=== PATIENT | female | born 1935 | race Caucasian/White ===

== ENCOUNTER 2016-12-29 07:53 | Emergency (ER) | payer MEDICARE ==
[~2016-12-29] VITALS: Ht 160 cm; Wt 70.0 kg
[~2016-12-29 07:53] MED LIST: ASPI81TA45 PO; CALA180T PO; CALC600T34 PO; CARV6.252 PO; CENTTAB16 PO; FLOVENT110 MCG/A INH; FURO40TA PO; GINK40TA2 PO; HYDR200T3 OR; IRON27TA PO; LISI-363 PO; OMEG340C PO; OMEP20CA5 PO; POTA-243 PO; TRAM50TA PO; VENTAER INH; VITA-13 PO
[2016-12-29 07:57] VITALS: BP 236/110; PULSE 87; RESP 20; O2SAT 96
[2016-12-29 08:07] VITALS: BP 213/91; PULSE 77; RESP 24; TEMP 98.6; O2SAT 73
[2016-12-29] MEDS ORDERED: SODIUM CHLORIDE 0.9% FLUSH 10 ML FLUSH IVF PRN (08:30)
--- NOTE | 2016-12-29 08:33 | PD ---
HPI Chief Complaint: Cardiac Complaint Time Seen by Provider: 08:20 Travel History International Travel<30 days: No Contact w/Intl Traveler<30days: No Traveled to known affect area: No History of Present Illness HPI This is an 81-year-old female who has a history of COPD and mitral regurgitation followed by Dr. Berkowitz who presents to the emergency department with increasing shortness of breath, progressive over the past week, worse when she walks and improves when she sits down. Her daughter has noticed that her cough has sounded more wet. The patient is reporting discomfort involving her left shoulder, right neck and "all over her body". Her daughter says it's pretty common for the patient to report pain when she has a CHF exacerbation. The patient has been using her COPD medications but she's not improving. She has a history of severe mitral regurgitation but is not a candidate for surgery due to her pulmonary status. PFSH Past Medical History Arthritis: Yes Asthma: Yes Anxiety: No Depression: No Heart Rhythm Problems: Yes Cancer: No Cardiovascular Problems: Yes (VALVE ISSUE / CHF) High Cholesterol: Yes Chest Pain: Yes Congestive Heart Failure: Yes Diminished Hearing: No Endocrine: No Gastrointestinal Disorders: No Gout: Yes Genitourinary: Yes Headaches: No Hepatitis: No Hypertension: Yes Immune Disorder: Yes (LUPUS) Implanted Vascular Access Dvce: No Musculoskeletal: Yes Neurologic: No Psychiatric: No Reproductive: No Respiratory: Yes Immunizations Current: Yes Renal Failure: Yes (INSUFFICIENCY) Sickle Cell Disease: No Ulcer: Yes Menopausal: Yes Past Surgical History Eye Surgery: Yes (BOTH EYES CATARACT) Gynecologic Surgery: Yes (HYSTERECTOMY) Hysterectomy: Yes (PARTIAL 47 YEARS AGO) Insulin Pump: No Joint Replacement: Yes (BILATERAL KNEE) Neurologic Surgery: No Other Surgery: Yes Social History Alcohol Use: Yes (occ) Tobacco Use: No Substance Use: No Allergies-Medications (Allergen,Severity, Reaction): Coded Allergies: Lipitor (Unverified Allergy, Severe, MYALGIAS, 03/13/15) Reported Meds & Prescriptions Reported Meds & Active Scripts Active Reported Iron 100 Plus 100-250-0.025-1 mg (Iron-Vitamin C-Vitamin B12-Fol) 1 Tab Tab 1 E1000 (Vitamin E) 1,000 Unit Cap Calcium (Oyster Shell) 500 Mg Tab B12 (Cyanocobalamin) 1,000 Mcg Tab Vitamin D3 (Cholecalciferol) 1,000 Unit Cap 1,000 Units PO DAILY Escitalopram (Escitalopram Oxalate) 10 Mg Tab 10 Mg PO DAILY Aspir-81 (Aspirin) 81 Mg Tabdr Ventolin Hfa 18 GM Inh (Albuterol Sulfate) 90 Mcg/Act Aer 1 Puff INH Q4H PRN Flovent Hfa 10.6 GM Inh (Fluticasone Propionate) 44 Mcg/Act Inh 2 Puff INH BID Use daily at the same time. Furosemide 40 Mg Tab 40 Mg PO DAILY Furosemide Liq (Furosemide) 10 Mg/Ml Soln 20 Mg PO BID Carvedilol 6.25 Mg Tab 6.25 Mg PO BID Montelukast (Montelukast Sodium) 10 Mg Tab 10 Mg PO HS Lisinopril 40 Mg Tab 40 Mg PO DAILY Hydrocodone-Acetaminophen 5-325 mg Tab 1 Tab PO Q4H PRN Tramadol (Tramadol HCl) 50 Mg Tab 50 Mg PO Q4H PRN Lovastatin 40 Mg Tab 40 Mg PO DAILY Omeprazole 20 Mg Tab 20 Mg PO DAILY Hydroxychloroquine (Hydroxychloroquine Sulfate) 200 Mg Tab 200 Mg PO BID Takw with food Review of Systems Except as stated in HPI: all other systems reviewed are Neg Physical Exam Narrative GENERAL: Frail elderly female in no acute distress. SKIN: Focused skin assessment warm and dry. HEAD: Atraumatic. Normocephalic. EYES: Pupils equal and round. No injection or drainage. ENT: Moist mucous membranes NECK: Trachea midline. CARDIOVASCULAR: Regular rate and rhythm. No murmur appreciated. 1+ pitting edema in the bilateral lower extremities. RESPIRATORY: Rales in the bilateral lung bases. GASTROINTESTINAL: Abdomen soft, non-tender, nondistended. MUSCULOSKELETAL: No obvious deformities. NEUROLOGICAL: Awake and alert. No obvious cranial nerve deficits. Moving all extremities. PSYCHIATRIC: Appropriate mood and affect; insight and judgment normal. Data Data Last Documented VS Vital Signs Date Time Temp Pulse Resp B/P Pulse Ox O2 Delivery O2 Flow Rate FiO2 12/29/16 11:11 90 18 180/86 97 Room Air 12/29/16 08:07 98.6 Orders Electrocardiogram (12/29/16 ) Complete Blood Count With Diff (12/29/16 08:30) Comprehensive Metabolic Panel (12/29/16 08:30) B-Type Natriuretic Peptide (12/29/16 08:30) Troponin I (12/29/16 08:30) Iv Access Insert/Monitor (12/29/16 08:30) Ecg Monitoring (12/29/16 08:30) Oximetry (12/29/16 08:30) Oxygen Administration (12/29/16 08:30) Chest, Single Ap (12/29/16 08:30) Sodium Chloride 0.9% Flush (Ns Flush) (12/29/16 08:30) Us Arm Venous Doppler (12/29/16 09:09) Carvedilol (Coreg) (12/29/16 09:30) Lisinopril (Prinivil) (12/29/16 09:30) Cta Thor Abd Aorta W Iv C W3d (12/29/16 ) Acetamin-Hydrocod 325-5 Mg ([place] 5-325 (12/29/16 10:45) Troponin I (12/29/16 10:44) Iohexol 350 Inj (Omnipaque 350 Inj) (12/29/16 11:09) Urinalysis - C+S If Indicated (12/29/16 11:20) Labs Laboratory Tests Test 12/29/16 12/29/16 12/29/16 08:50 11:00 11:25 White Blood Count 5.9 TH/MM3 Red Blood Count 4.36 MIL/MM3 Hemoglobin 12.4 GM/DL Hematocrit 37.7 % Mean Corpuscular Volume 86.5 FL Mean Corpuscular Hemoglobin 28.4 PG Mean Corpuscular Hemoglobin 32.8 % Concent Red Cell Distribution Width 13.3 % Platelet Count 190 TH/MM3 Mean Platelet Volume 8.6 FL Neutrophils (%) (Auto) 64.0 % Lymphocytes (%) (Auto) 26.7 % Monocytes (%) (Auto) 8.1 % Eosinophils (%) (Auto) 0.6 % Basophils (%) (Auto) 0.6 % Neutrophils # (Auto) 3.7 TH/MM3 Lymphocytes # (Auto) 1.6 TH/MM3 Monocytes # (Auto) 0.5 TH/MM3 Eosinophils # (Auto) 0.0 TH/MM3 Basophils # (Auto) 0.0 TH/MM3 CBC Comment DIFF FINAL Differential Comment Sodium Level 141 MEQ/L Potassium Level 3.3 MEQ/L Chloride Level 102 MEQ/L Carbon Dioxide Level 30.5 MEQ/L Anion Gap 9 MEQ/L Blood Urea Nitrogen 22 MG/DL Creatinine 1.09 MG/DL Estimat Glomerular Filtration 48 ML/MIN Rate Random Glucose 96 MG/DL Calcium Level 9.1 MG/DL Total Bilirubin 0.5 MG/DL Aspartate Amino Transf 16 U/L (AST/SGOT) Alanine Aminotransferase 21 U/L (ALT/SGPT) Alkaline Phosphatase 65 U/L Troponin I LESS THAN 0.02 0.02 NG/ML NG/ML B-Type Natriuretic Peptide 462 PG/ML Total Protein 7.2 GM/DL Albumin 4.2 GM/DL Urine Color LIGHT-YELLOW Urine Turbidity CLEAR Urine pH 8.0 Urine Specific [place] 1.007 Urine Protein NEG mg/dL Urine Glucose (UA) NEG mg/dL Urine Ketones NEG mg/dL Urine Occult Blood NEG Urine Nitrite NEG Urine Bilirubin NEG Urine Urobilinogen LESS THAN 2.0 MG/DL Urine Leukocyte Esterase NEG Urine RBC LESS THAN 1 /hpf Urine WBC LESS THAN 1 /hpf Microscopic Urinalysis Comment CULT NOT INDICATED MDM Medical Decision Making Medical Screen Exam Complete: Yes Emergency Medical Condition: Yes Medical Record Reviewed: Yes (patient was admitted one year ago in the setting of congestive heart failure ) Interpretation(s) EKG: Normal sinus rhythm, left axis deviation, some mild ST depression in the lateral leads No leukocytosis Mild hypokalemia Troponin is normal BNP is 462 Repeat troponin is 0.02 Urinalysis is negative for infection Last 24 hours Impressions Upper Extremity Ultrasound 12/29/16 0909 Signed Impressions: Service Date/Time: Thursday, December 29, 2016 09:12 - CONCLUSION: Normal examination. Bob Elizabeth Jr., MD Chest X-Ray 12/29/16 0830 Signed Impressions: Service Date/Time: Thursday, December 29, 2016 08:32 - CONCLUSION: No acute disease. Kurtis Duffy MD FACR CTA: Atherosclerosis but no aortic dissection Differential Diagnosis Aortic dissection, pneumonia, upper extremity DVT, electrolyte abnormality, myocardial infarction Narrative Course This is an 81-year-old female who presents to the emergency department with body aches, particularly on her left side affecting her back and her neck. She is quite hypertensive when she came in but she hadn't taken her blood pressure medications yet. She doesn't really or chest pain. Her daughter was concerned that she thought she might have volume overload. EKG is nonspecific, labs were obtained which were reassuring. Ultrasound of the left upper extremity was obtained given the patient was concerned swelling which was negative for DVT. CT of the aorta demonstrates no aortic dissection. 2 troponins were obtained which were reassuring. BNP was only 400 which is significantly lower than the 1400 the prompted her last admission. I think the patient is safe to follow-up with her primary care physician. I don't think she would benefit from a hospital stay as her symptoms are fairly nonspecific. Diagnosis Primary Impression: Body aches Patient Instructions: General Instructions Additional Instructions: If you develop severe chest pain, shortness of breath, sweating, lightheadedness , dizziness or difficulty breathing return to the emergency department immediately. Followup with your primary care physician in 2-3 days if your symptoms are not resolved. Med/Other Pt SpecificInfo: No Change to Meds Disposition: 01 DISCHARGE HOME Condition: Stable Collette Munoz MD Dec 29, 2016 08:33
[2016-12-29 08:57] LABS: AUTOMATED NEUTROPHIL # 3.7 TH/MM3 (1.8-7.7); BASOPHIL % 0.6 % (0.0-2.0); EOSINOPHIL % 0.6 % (0.0-4.0); HEMATOCRIT 37.7 % (35.0-46.0); HEMO FLAGS DIFF FINAL; LYMPH % 26.7 % (9.0-44.0); LYMPHOCYTE # 1.6 TH/MM3 (1.0-4.8); MEAN CELL VOLUME 86.5 FL (80.0-100.0); MEAN CORPUSCULAR HEMOGLOBIN 28.4 PG (27.0-34.0); MEAN CORPUSCULAR HGB CONC 32.8 % (32.0-36.0); MONO % 8.1 % (0.0-8.0); PLATELET COUNT 190 TH/MM3 (150-450); RED BLOOD COUNT 4.36 MIL/MM3 (4.00-5.30); RED CELL DISTRIBUTION WIDTH 13.3 % (11.6-17.2); WHITE BLOOD COUNT 5.9 TH/MM3 (4.0-11.0)
[2016-12-29] MEDS ORDERED: HYDR-3516 PO (08:58)
[2016-12-29] MEDS ORDERED: LISI40TA PO (08:58)
[2016-12-29] MEDS ORDERED: FURO40TA PO ×2 (08:58→09:06)
[2016-12-29] MEDS ORDERED: LOVA40TA PO (08:58)
[2016-12-29] MEDS ORDERED: OMEP20TA PO (08:58)
[2016-12-29] MEDS ORDERED: TRAM50TA PO (08:58)
[2016-12-29] MEDS ORDERED: HYDR200T3 PO (08:58)
[2016-12-29] MEDS ORDERED: MONT10TA4 PO (08:58)
[2016-12-29] MEDS ORDERED: CARV6.252 PO (08:58)
--- NOTE | 2016-12-29 08:58 | RADRPT ---
EXAM DATE/TIME: 12/29/2016 08:32 [facility] COMPARISON: CHEST SINGLE AP, March 13, 2015, 12:12. INDICATIONS : Short of breath MEDICAL HISTORY : None. SURGICAL HISTORY : None. ENCOUNTER: Initial ACUITY: 1 day PAIN SCORE: 0/10 LOCATION: Bilateral chest FINDINGS: A single view of the chest demonstrates the lungs to be symmetrically aerated without evidence of mas s, infiltrate or effusion. The cardiomediastinal contours are unremarkable. Degenerative changes ar e present about the shoulder. CONCLUSION: No acute disease. Kurtis Duffy MD FACR on December 29, 2016 at 8:55 Board Certified Radiologist. This report was verified electronically.
[2016-12-29] MEDS ORDERED: CYAN1TAB24 (09:06)
[2016-12-29] MEDS ORDERED: VITA100036 PO (09:06)
[2016-12-29] MEDS ORDERED: ASPI81TA81 (09:06)
[2016-12-29] MEDS ORDERED: ESCI10TA PO (09:06)
[2016-12-29] MEDS ORDERED: VENTAER INH (09:06)
[2016-12-29] MEDS ORDERED: IRONTAB4 (09:06)
[2016-12-29] MEDS ORDERED: FLUTI44I INH (09:06)
[2016-12-29] MEDS ORDERED: FURO10SO PO (09:06)
[2016-12-29] MEDS ORDERED: CALC500T35 (09:06)
[2016-12-29] MEDS ORDERED: [UNRECOGNIZED DRUG - CODE] (09:06)
[2016-12-29 09:15] LABS: ANION GAP 9 MEQ/L (5-15); AST (GOT) 16 U/L (15-37); BICARBONATE 30.5 MEQ/L (21.0-32.0); BLOOD UREA NITROGEN 22 MG/DL (7-18); CHLORIDE 102 MEQ/L (98-107); GLOMERULAR FILTRATION RATE 48 ML/MIN (>89); POTASSIUM 3.3 MEQ/L (3.5-5.1); SODIUM (NA) 141 MEQ/L (136-145)
[2016-12-29 09:16] LABS: ALT (GPT) 21 U/L (10-53)
[2016-12-29 09:20] LABS: ALKALINE PHOSPHATASE 65 U/L (45-117); TOTAL BILIRUBIN ADULT 0.5 MG/DL (0.2-1.0)
[2016-12-29] MEDS: LISINOPRIL 20 MG TAB PO SCH ×2 (09:29→11:13)
[2016-12-29] MEDS ORDERED: CARVEDILOL 6.25 MG TAB PO ONE (09:30)
--- NOTE | 2016-12-29 09:46 | RADRPT ---
EXAM DATE/TIME: 12/29/2016 09:12 [facility] COMPARISON: No previous studies available for comparison. INDICATIONS : Left arm pain. MEDICAL HISTORY : Hypercholesterolemia. Congestive heart failure. Arthritis. Chest pain. Irregular heartbeat. HTN. Asth ma. Dyspnea. Ulcer. Renal failure. UTIs. Gout. LUPUS. SURGICAL HISTORY : Hysterectomy. Bilateral cataract surgery. Left wrist. Bilateral knee joint replacement. ENCOUNTER: Initial ACUITY: 2 day PAIN SCORE: 4/10 LOCATION: Left arm. FINDINGS: There is spontaneous flow documented in the brachial, basilic, cephalic, axillary, and subclavian vei ns. The vessels are compressible and augmentation response is documented. No filling defects are se en. The flow is phasic with respiration. Direction of flow in the jugular vein is caudal. CONCLUSION: Normal examination. Bob Elizabeth Jr., MD on December 29, 2016 at 9:38 Board Certified Radiologist. This report was verified electronically.
[2016-12-29 10:00] VITALS: BP 207/97; PULSE 88; RESP 20; O2SAT 98
[2016-12-29] MEDS ORDERED: ACETAMINOPHEN/HYDROcodone 325 MG/5 MG TAB PO ONE (10:45)
[2016-12-29] MEDS ORDERED: IOHEXOL 350 MG/ML 10 ML VIAL (for RAD DIAG) IV ONE (11:09)
[2016-12-29 11:11] VITALS: BP 180/86; PULSE 90; RESP 18; O2SAT 97
[2016-12-29 11:37] LABS: BLOOD, URINE NEG (NEG); GLUCOSE,URINE NEG (NEG); KETONE, URINE NEG (NEG); NITRITE,URINE NEG (NEG); URINE COLOR LIGHT-YELLOW (YELLW/STRAW)
[2016-12-29 11:41] LABS: COMMENT (UR) CULT NOT INDICATED; CULTURE IF INDICATED CULT NOT INDICATED
--- NOTE | 2016-12-29 12:03 | RADRPT ---
EXAM DATE/TIME: 12/29/2016 10:51 [facility] COMPARISON: CT ABDOMEN & PELVIS W CONTRAST, March 13, 2015, 13:27. INDICATIONS : Shortness of breath and Left side chest pain. IV CONTRAST: 90 cc Omnipaque 350 (iohexol) IV RADIATION DOSE: 7.55 CTDIvol (mGy) MEDICAL HISTORY : Cardiovascular disease. Hypertension. Renal insufficiency.Gerd, ulcers, Lupus SURGICAL HISTORY : Hysterectomy. ENCOUNTER: Initial ACUITY: 1 day PAIN SCALE: 0/10 LOCATION: Left chest TECHNIQUE: Volumetric scanning was performed using a multi-row detector CT scanner. The data was post processed with a variety of visualization algorithms including full volume maximum intensity projection, multi -planar sliding thin slab reformation, curved planar reformation, and surface rendering techniques. Using automated exposure control and adjustment of the mA and/or kV according to patient size, radiat ion dose was kept as low as reasonably achievable to obtain optimal diagnostic quality images. FINDINGS: Thoracic/abdominal aorta: There is a 2 vessel origin to the arch. The common carotid artery on the left and the brachiocephalic artery shear a common origin. The arch vessels are calcified but patent. The thoracic aorta shows di ffuse calcified plaque but no aneurysmal change, dissection, or hemodynamically significant stenosis. In-Flow vessels are patent bilaterally. There is a 50% stenosis involving the SMA origin and a 30% s tenosis involving the proximal celiac. TETE is patent. Moderate bilateral renal artery stenoses. Heart and mediastinum: Mild cardiomegaly. No pericardial effusion. Pulmonary arteries are normal in caliber. No mass or tutu opathy. Lung parenchyma: Linear scarring within both lung bases. No mass or acute infiltrate. Other structures: A 1 cm enhancing nodule is again seen centrally within segment 4 liver. This is stable from 2014. The visceral structures are otherwise unremarkable. Note is made of colonic diverticulosis without acute inflammation. A degenerative lumbar spine. CONCLUSION: 1. Thoracic and abdominal aorta are unremarkable other than calcified atherosclerotic plaque. 2. Celiac, SMA, and bilateral renal artery stenoses. 3. Cardiomegaly. 4. Colonic diverticulosis. Bob Elizabeth Jr., MD on December 29, 2016 at 11:54 Board Certified Radiologist. This report was verified electronically.
[2016-12-29 12:18] VITALS: BP 180/97; PULSE 92; RESP 22
[2016-12-29 12:20] VITALS: BP 181/87
--- NOTE | 2016-12-29 16:55 | EKG ---
Date Performed: 12/29/2016 Time Performed: 08:10:58 PTAGE: 81 years EKG: Sinus rhythm MARKED LEFT AXIS DEVIATION VOLTAGE CRITERIA FOR LVH MINIMAL ST DEPRESSION ABNORMAL ECG Compared to t he PREVIOUS TRACING ST changes less prominent DOCTOR: Robert Ortega Interpretating Date/Time 12/29/2016 16:52:48
== END 2016-12-29 12:28 | disposition home or self-care (01) ==
LOC: NEPC 07:53
DX: R52 Pain, unspecified (principal); I10 Essential (primary) hypertension; I50.9 Heart failure, unspecified; R06.02 Shortness of breath
CPT/HCPCS: 71010; 71275; 74174; 80053; 81001; 83880; 84484; 85025; 93005; 93971; 99285; Q9967